=== PATIENT | male | born 1945 | race Caucasian/White ===

== ENCOUNTER → 2019-10-07 05:37 | Day surgery (SDC) | payer MEDICARE ==
[~2019-10-07 05:37] MED LIST: Buffered Lidocaine 1% SYRIN* 1 ML/SYRINGE INTRADERM ONE; Bupivacaine 0.25% SDV* 30 ML ONE; Dexamethasone TAB* 4 MG ONE; Dexamethasone TAB* 4 MG PO ONE; EPHEDrine (Pressors)* 50 MG/ML VIAL ONE; Famotidine IV* 10 MG/ML 2 ML (20 mg) IV ONE; Famotidine IV* 10 MG/ML 2 ML (20 mg) ONE; Lactated Ringers 1000 ML Bag* 1,000 ML IV SCH; Lidocaine 2% PF * 5 ML VIAL ONE; Naloxone* 0.4 MG/ML 1 ML VIAL IV PRN; fentaNYL* 50 MCG/ML 2 ML VIAL (100 MCG VIAL) ONE
[2019-10-07 09:33] VITALS: BP 148/68
--- NOTE | 2019-10-07 20:55 | OP ---
DATE OF OPERATION: 10/07/19 - SDS DATE OF : 47 SURGEON: Ian El MD METAL ANNEALER: DENIA Vail ANESTHESIOLOGIST: Dr. Andrews. ANESTHESIA: General. PRE-OP DIAGNOSIS: Right carpal tunnel syndrome. POST-OP DIAGNOSIS: Right carpal tunnel syndrome. OPERATIVE PROCEDURE: Right endoscopic carpal tunnel release. INDICATIONS: Mr. Espinosa has very severe carpal tunnel syndrome. He is having a lot of nighttime symptoms and pain. We talked about treatment options. He wanted to proceed with surgery. ESTIMATED BLOOD LOSS: 2 mL. COMPLICATIONS: None. FINDINGS: See above and below. DESCRIPTION OF PROCEDURE: Mr. Espinosa was seen in the preoperative holding area. The correct site, side, and procedure were identified. We came back to the operating room and the arm was prepped and draped in the usual fashion and a time- out was performed. The arm was exsanguinated with the Esmarch and the tourniquet inflated. A 1-cm transverse incision was made just proximal to the wrist flexion crease. Dissection was carried down. A 2-prong skin hook was placed underneath the fascia. The carpal tunnel was dilated open and then the MicroAire endoscopic carpal tunnel system was introduced. The release was carried out from distal to proximal. Once I had confirmed the entire release distally, I released the distal antebrachial fascia proximally with the tenotomy scissors. At this point , everything was looking good. The wound was irrigated out and the skin was closed with a 4-0 Prolene suture and a Steri-Strip. A soft dressing was applied and he was taken to the recovery room in stable condition. [id number] #: [id number] [facility]
== END | disposition home or self-care (01) ==
LOC: OR 05:37
PROVIDERS: ATTEND Orthopaedic Surgery Hand Surgery
DX: G56.01 Carpal tunnel syndrome, right upper limb (principal); I10 Essential (primary) hypertension; E89.0 Postprocedural hypothyroidism; E11.8 Type 2 diabetes mellitus with unspecified complications; Z85.850 Personal history of malignant neoplasm of thyroid; Z88.8 Allergy status to other drugs, medicaments and biological substances
CPT/HCPCS: J3010; J3490; J8540

== ENCOUNTER 2020-08-24 05:54 | Inpatient (IN) ==
[2020-08-24] MEDS ORDERED: Buffered Lidocaine 1% SYRIN 1 ml INTRADERM ONE (06:00)
[2020-08-24] MEDS ORDERED: Lactated Ringers 1000 ml BAG 1,000 ML IV SCH (06:00)
[2020-08-24] MEDS ORDERED: fentaNYL 100 mcg/2 ml 50 MCG/ML VIAL ONE (06:33)
[2020-08-24] MEDS ORDERED: Dexamethasone IV 4 MG/ML VIAL 1 ml VIAL ONE ×2 (06:34→06:58)
[2020-08-24] MEDS ORDERED: Rocuronium 50 mg VIAL 10 mg/ml 5 ml VIAL (50 mg) ONE ×2 (06:34→10:32)
[2020-08-24] MEDS ORDERED: Propofol 10 MG/ML 20 ML BTL ONE ×2 (06:34→10:37)
[2020-08-24] MEDS ORDERED: Ondansetron 4 mg VIAL 2 MG/ML 2 ml VIAL ONE ×2 (06:34→11:12)
[2020-08-24] MEDS ORDERED: Midazolam 2 mg/2 ml VIAL 1 mg/ml 2 ml VIAL (2 mg) ONE ×2 (06:34→06:58)
[2020-08-24] MEDS ORDERED: Lidocaine 2% PF 5 ML VIAL ONE (06:34)
[2020-08-24] MEDS ORDERED: ceFAZolin 2 GM PREMIX 2 GM/50 ML BAG ONE (06:44)
[2020-08-24] MEDS ORDERED: ROPIVACAINE 5 MG/ML 30 ML BTL (0.5%) ONE (06:58)
[2020-08-24] MEDS ORDERED: Dexmedetomidine 200 mcg/2 ml 2 ml VIAL (200 mcg) ONE (06:58)
[2020-08-24 07:16] LABS: ABS Basophils 0.1 10^3/ul (0-0.2); ABS Eosinophils 0.1 10^3/ul (0-0.6); ABS Lymphocytes 1.5 10^3/ul (1.0-4.8); ABS Monocytes 0.7 10^3/ul (0-0.8); Eosinophil % 1.1 %; Hematocrit 44 % (42-52); Hemoglobin 15.2 g/dL (14.0-18.0); Lymphocyte % 23.6 %; Mean Corpuscular HGB Conc 34 g/dL (31-36); Mean Corpuscular Hemoglobin 33 pg (27-31); Mean Corpuscular Volume 95 fL (80-94); Mean Platelet Volume 6.5 fL (7.4-10.4); Platelet Count 246 10^3/uL (150-450); Red Blood Count 4.67 10^6 /uL (4.18-5.48); Red Cell Distribution Width 13 % (10-15); White Blood Count 6.2 10^3/uL (3.5-10.8)
[2020-08-24 07:34] LABS: Anion Gap 8 mmol/L (2-11); BUN/Creatinine Ratio 17.9 (8-20); Blood Urea Nitrogen 15 mg/dL (6-24); C Reactive Protein < 1.00 mg/L (<8.01); CO2 Carbon Dioxide 24 mmol/L (22-32); Chloride 100 mmol/L (101-111); EGFR African American 108.1 (>60); EGFR Non-African American 89.3 (>60); Glucose 123 mg/dL (70-100); INR 1.27 (0.82-1.09); Potassium 4.3 mmol/L (3.5-5.0); Sodium 132 mmol/L (135-145)
[2020-08-24] MEDS ORDERED: Vancomycin 1,000 MG VIAL ONE (07:51)
[2020-08-24] MEDS ORDERED: ceFAZolin 1 GM ADVAN 1 GM ADDV.VIAL IVPB ONE (08:03)
[2020-08-24] MEDS ORDERED: EPHEDrine (Pressors) 50 MG/ML VIAL ONE ×2 (08:36→09:00)
[2020-08-24 09:20] LABS: Erythrocyte Sed Rate 7 mm/Hr (0-19)
[2020-08-24] MEDS ORDERED: Metoclopramide 5 MG/ML VIAL (10 mg) ONE (11:12)
[2020-08-24] MEDS ORDERED: diPHENhydraMINE IV 50 MG/ML 1 ml VIAL (BENADRYL) IV PRN (12:13)
[2020-08-24] MEDS ORDERED: Lactulose 30 ml UDC PO PRN (12:13)
[2020-08-24] MEDS ORDERED: diPHENhydraMINE 25 mg TAB PO PRN (12:13)
[2020-08-24] MEDS ORDERED: Morphine 2 MG/ML SYRINGE IV PRN (12:13)
[2020-08-24] MEDS ORDERED: oxyCODONE/Acetamin 5/325 mg TAB PO PRN (12:13)
[2020-08-24] MEDS ORDERED: Ondansetron 4 mg VIAL 2 MG/ML 2 ml VIAL IV PRN (12:13)
[2020-08-24] MEDS ORDERED: Ondansetron ODT 4 mg TAB 4 MG TAB PO PRN (12:13)
[2020-08-24] MEDS: Lactated Ringers 1000 ml BAG 1,000 ML IV SCH ×2 (13:58→23:53)
[2020-08-24] MEDS: ceFAZolin 1 GM ADVAN 1 GM in NS 0.9% 50 ML 50 ML IVPB SCH ×2 (16:10→23:51)
[2020-08-25] MEDS: oxyCODONE/Acetamin 5/325 mg TAB PO PRN ×3 (04:00→12:53)
[2020-08-25 06:20] LABS: Hematocrit 35 % (42-52); Mean Platelet Volume 6.7 fL (7.4-10.4); Platelet Count 219 10^3/uL (150-450)
[2020-08-25 06:26] LABS: BUN/Creatinine Ratio 18.4 (8-20); Calcium 7.7 mg/dL (8.6-10.3); EGFR African American 121.3 (>60); EGFR Non-African American 100.3 (>60); Magnesium 1.7 mg/dL (1.9-2.7); Potassium 4.1 mmol/L (3.5-5.0)
[2020-08-25] MEDS: ceFAZolin 1 GM ADVAN 1 GM in NS 0.9% 50 ML 50 ML IVPB SCH (07:33)
[2020-08-25] MEDS ORDERED: Magnesium Sulfate 2 gm BAG 2 GM/50 ML BAG IVPB ONE (07:47)
[2020-08-25] MEDS ORDERED: Vitamin THERAPEUTIC TAB PO SCH (09:00)
[2020-08-25 11:44] VITALS: BP 131/65
== END 2020-08-25 16:15 | disposition home or self-care (01) | DRG 483 ==
LOC: OBSVTOIN 05:54 → INTOOBSV 05:54 → AA 05:54 → SSU 12:13
PROVIDERS: ADMIT Orthopaedic Surgery; ATTEND Orthopaedic Surgery

== ENCOUNTER 2021-03-01 09:26 | Inpatient (IN) ==
[~2021-03-01 09:26] MED LIST changes: +Buffered Lidocaine 1% SYRIN 1 ml INTRADERM ONE; -Buffered Lidocaine 1% SYRIN* 1 ML/SYRINGE INTRADERM ONE; -Bupivacaine 0.25% SDV* 30 ML ONE; -Dexamethasone TAB* 4 MG ONE; -Dexamethasone TAB* 4 MG PO ONE; -EPHEDrine (Pressors)* 50 MG/ML VIAL ONE; -Famotidine IV* 10 MG/ML 2 ML (20 mg) IV ONE; -Famotidine IV* 10 MG/ML 2 ML (20 mg) ONE; -Lactated Ringers 1000 ML Bag* 1,000 ML IV SCH; +Lactated Ringers 1000 ml BAG 1,000 ML IV SCH; -Lidocaine 2% PF * 5 ML VIAL ONE; -Naloxone* 0.4 MG/ML 1 ML VIAL IV PRN; -fentaNYL* 50 MCG/ML 2 ML VIAL (100 MCG VIAL) ONE
[2021-03-01] MEDS ORDERED: Midazolam 2 mg/2 ml VIAL 1 mg/ml 2 ml VIAL (2 mg) ONE (09:46)
[2021-03-01] MEDS ORDERED: ceFAZolin 2 GM PREMIX 2 GM/50 ML BAG ONE (09:49)
[2021-03-01] MEDS ORDERED: ceFAZolin 1 GM ADVAN 1 GM ADDV.VIAL IVPB ONE (09:49)
[2021-03-01] MEDS ORDERED: Midazolam 5 mg/5 ml VIAL 1 mg/ml 5 ml VIAL (5 mg) ONE (10:04)
[2021-03-01] MEDS ORDERED: fentaNYL 100 mcg/2 ml 50 MCG/ML VIAL ONE ×2 (10:04→15:12)
[2021-03-01] MEDS ORDERED: Bupivacaine 0.5% SDV PF 30ML VIAL ONE (10:11)
[2021-03-01] MEDS ORDERED: Lidocaine 2% PF 10 ML AMP ONE (10:11)
[2021-03-01] MEDS ORDERED: Bupivacaine 0.25% SDV 30 ML ONE (10:11)
[2021-03-01] MEDS ORDERED: Bupivacaine 0.25% EPI 200,000 30 ML SDV ONE (12:09)
[2021-03-01] MEDS ORDERED: Vancomycin 1,000 MG VIAL ONE (12:11)
[2021-03-01] MEDS ORDERED: Glycopyrrolate IV 0.2 MG/ML 1 ML VIAL ONE (13:05)
[2021-03-01] MEDS ORDERED: Ketamine HCL 50 mg/ml 10 ml VIAL (500 MG) ONE (13:05)
[2021-03-01] MEDS ORDERED: Propofol 10 MG/ML 20 ML BTL ONE (15:30)
[2021-03-01] MEDS ORDERED: diPHENhydraMINE 25 mg TAB PO PRN (16:03)
[2021-03-01] MEDS ORDERED: diPHENhydraMINE IV 50 MG/ML 1 ml VIAL (BENADRYL) IV PRN (16:03)
[2021-03-01] MEDS ORDERED: Lactulose 30 ml UDC PO PRN (16:03)
[2021-03-01] MEDS ORDERED: Ondansetron ODT 4 mg TAB 4 MG TAB PO PRN (16:03)
[2021-03-01] MEDS ORDERED: Magnesium Hydroxide LIQ 30 ML UDC PO PRN (16:03)
[2021-03-01] MEDS ORDERED: Ondansetron 4 mg VIAL 2 MG/ML 2 ml VIAL IV PRN (16:03)
[2021-03-01] MEDS: Lactated Ringers 1000 ml BAG 1,000 ML IV SCH (17:24)
[2021-03-01] MEDS: Morphine 2 MG/ML SYRINGE IV PRN ×2 (18:54→23:30)
[2021-03-01] MEDS: ceFAZolin 1 GM ADVAN 1 GM in NS 0.9% 50 ML 50 ML IVPB SCH (21:36)
[2021-03-01] MEDS: Magnesium Hydroxide LIQ 30 ML UDC PO SCH (21:39)
[2021-03-02] MEDS: Morphine 2 MG/ML SYRINGE IV PRN (03:38)
[2021-03-02] MEDS: Lactated Ringers 1000 ml BAG 1,000 ML IV SCH (03:39)
[2021-03-02 04:51] LABS: Hematocrit 38 % (42-52); Hemoglobin 12.6 g/dL (14.0-18.0); Platelet Count 167 10^3/uL (150-450)
[2021-03-02 05:07] LABS: Calcium 8.1 mg/dL (8.6-10.3); EGFR African American 108.1 (>60); EGFR Non-African American 89.3 (>60); Potassium 4.3 mmol/L (3.5-5.0)
[2021-03-02] MEDS: ceFAZolin 1 GM ADVAN 1 GM in NS 0.9% 50 ML 50 ML IVPB SCH ×2 (07:25→12:45)
[2021-03-02] MEDS ORDERED: Vitamin THERAPEUTIC TAB PO SCH (09:00)
[2021-03-02] MEDS: Magnesium Hydroxide LIQ 30 ML UDC PO SCH (11:04)
[2021-03-02 11:38] VITALS: BP 118/70
== END 2021-03-02 14:00 | disposition home health service (06) | DRG 470 ==
LOC: AA 09:26 → SSU 17:22
PROVIDERS: ADMIT Orthopaedic Surgery; ATTEND Orthopaedic Surgery